=== PATIENT | female | born 1995 | race Asian ===

== ENCOUNTER 2017-02-17 15:54 | Outpatient (CLI) | payer OTHER | END 2017-02-17 15:55 | disposition critical access hospital (66) | LOC: EMS 15:54 | PROVIDERS: ATTEND Surgery | DX: T78.40XA Allergy, unspecified, initial encounter (principal) | CPT/HCPCS: A0425; A0427 ==

== ENCOUNTER 2017-02-17 16:15 | Emergency (ER) | payer OTHER ==
--- NOTE | 2017-02-17 16:24 | ED Physician Documentation ---
History of Present Illness - Stated complaint Stated Complaint: SOA/ RASH - Chief complaint Chief Complaint: Allergic Rx - History obtained from History obtained from: Patient, Family (mom), EMS - History of Present Illness Timing: Other (She was outside, she felt something may be on her arm and then rapidly developed burning all over her body which is better after Benadryl. She had a presyncopal event and was crying but now feels better. Never saw anything specific on her arm.) Review of Systems Constitutional: denies: Fever, Chills Cardiac: denies: Chest pain / pressure, Palpitations Respiratory: denies: Dyspnea, Cough GI: denies: Abdominal Pain PD PAST MEDICAL HISTORY - Allergies Allergies/Adverse Reactions: Allergies Allergy/AdvReac Type Severity Reaction Status Date / Time No Known Drug Allergies Allergy Verified 02/17/17 16:23 PD ED PE NORMAL - Vitals Vital signs reviewed: Yes - General General: Alert and oriented X 3, No acute distress - HEENT HEENT: Pharynx benign - Cardiac Cardiac: RRR, No murmur - Respiratory Respiratory: No respiratory distress, Clear bilaterally - Abdomen Abdomen: Soft, Non tender - Derm Derm: Normal color, Warm and dry, No rash - Neuro Neuro: Alert and oriented X 3, Normal speech Results - Vitals Vitals: Vital Signs - 24 hr 02/17/17 02/17/17 16:21 17:48 Temperature 36.9 C Heart Rate 86 70 Respiratory 18 18 Rate Blood Pressure 129/71 113/64 O2 Saturation 98 100 Oxygen O2 Source Room air PD MEDICAL DECISION MAKING - ED course ED course: Sounds like she had some sort of insect envenomation causing brief body wide symptoms. She is asymptomatic at this juncture without evidence of anaphylaxis. She will be observed for a couple of hours. Departure - Departure Disposition: 01 Home, Self Care Clinical Impression: Insect bite of arm, right Qualifiers: Encounter type: initial encounter Qualified Code(s): S40.861A - Insect bite ( nonvenomous) of right upper arm, initial encounter; W57.XXXA - Bitten or stung by nonvenomous insect and other nonvenomous arthropods, initial encounter Condition: Good Record reviewed to determine appropriate education?: Yes Instructions: ED Bite Sting Insect Gen Allergic React
[2017-02-17 17:51] VITALS: BP 113/64
== END 2017-02-17 18:21 | disposition home or self-care (01) ==
LOC: ED 16:15
DX: S40.861A Insect bite (nonvenomous) of right upper arm, initial encounter (principal); W57.XXXA Bitten or stung by nonvenomous insect and other nonvenomous arthropods, initial encounter
CPT/HCPCS: 99283